=== PATIENT | male | born 1950 ===

== ENCOUNTER 2016-07-04 20:59 | Emergency (ER) | payer MEDICARE, MEDICAID ==
[2016-07-04 22:09] VITALS: BP 123/82; PULSE 105; RESP 18; TEMP 98.7; O2SAT 96
--- NOTE | 2016-07-04 23:59 | CT ---
EXAM: CT Pelvis Without Intravenous Contrast CLINICAL HISTORY: 66 years old, male; Pain; Hip pain; Bilateral; Additional info: Pelvic pain TECHNIQUE: Axial computed tomography images of the pelvis without intravenous contrast. This CT exam was performed using one or more of the following dose reduction techniques: automated exposure control, adjustment of the mA and/or kV according to patient size, and/or use of iterative reconstruction technique. COMPARISON: No relevant prior studies available. FINDINGS: Bones/joints: No acute fracture. Degenerative changes of lower lumbar spine, sacroiliac joints, pubic symphysis. No dislocation. Soft tissues: Tiny umbilical hernia containing fat. Mild asymmetric enlargement of LEFT adductor brevis, adductor longus, gracillis muscles. Mild stranding within adjacent fat. Vasculature: Minimal atherosclerotic disease. Stomach and bowel: Scattered diverticula within colon. IMPRESSION: 1. Mild enlargement of LEFT thigh musculature with surrounding inflammation. DDX: Myositis, muscle strain. Clinical correlation is needed. 2. Incidental/non-acute findings are described above.
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
[2016-07-05] MEDS ORDERED: Naproxen 500 MG TAB PO ONE (00:48)
[2016-07-05] MEDS ORDERED: Naproxen 500 MG TAB PO STA (00:48)
== END 2016-07-05 00:29 | disposition home or self-care (01) ==
LOC: H.ER 20:59
DX: S39.011A Strain of muscle, fascia and tendon of abdomen, initial encounter (principal); W19.XXXA Unspecified fall, initial encounter; Y92.512 Supermarket, store or market as the place of occurrence of the external cause; N50.82 Scrotal pain; M25.551 Pain in right hip; M25.552 Pain in left hip

== ENCOUNTER 2018-05-24 11:38 | Emergency (ER) | payer MEDICAID ==
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
[2018-05-24 15:29] VITALS: BP 122/78; PULSE 78; RESP 18; TEMP 98; O2SAT 99
== END 2018-05-24 15:28 | disposition home or self-care (01) ==
LOC: H.ER 11:38 → SUPCPDRO 11:38 → H.ER 15:28
DX: M54.2 Cervicalgia (principal); M54.9 Dorsalgia, unspecified; M25.569 Pain in unspecified knee; V43.52XA Car driver injured in collision with other type car in traffic accident, initial encounter; Y92.410 Unspecified street and highway as the place of occurrence of the external cause
CPT/HCPCS: 72125; 72131; 96372; 99283; J1885